=== PATIENT | female | born 1985 | race Caucasian/White ===

== ENCOUNTER → 2016-07-20 | Outpatient (CLI) | payer OTHER ==
[~2016-07-20] MED LIST: PRENTAB26 PO
[2016-07-20 15:46] LABS: BASO % 0.3 %; BASO ABS # 0.02 K/uL (0-0.2); COMPLETE YES; EOS % 0.6 %; HEMATOCRIT 36.5 % (37-47); IG% 0.1 %; LYMPH % 27.4 %; LYMPH ABS # 1.96 K/uL (1.2-3.4); MEAN CELL VOLUME 92.4 fL (80-100); MEAN CORPUSCULAR HEMOGLOBIN 32.9 pg (25-34); MEAN CORPUSCULAR HGB CONC 35.6 g/dl (32-36); MEAN PLATELET VOLUME 11.5 fL (7.4-10.4); MONO % 5.9 %; NEUT % 65.7 %; PLATELET COUNT 174 K/uL (130-400); RED BLOOD COUNT 3.95 M/uL (4.2-5.4); WHITE BLOOD COUNT 7.15 K/uL (4.8-10.8)
== END | disposition home or self-care (01) ==
LOC: C.LAB1850 14:30
PROVIDERS: ATTEND Obstetrics & Gynecology
DX: Z34.81 Encounter for supervision of other normal pregnancy, first trimester (principal)

== ENCOUNTER → 2016-07-20 | Outpatient (CLI) | payer OTHER ==
[2016-07-23 11:23] LABS: MANUAL MICROSCOPIC REQUIRED? NO; REVIEW REQ? NO; URINE APPEARANCE CLEAR (CLEAR); URINE COLOR YELLOW
[2016-07-23 11:24] LABS: URINE BILIRUBIN NEG (NEG); URINE NITRITE NEG (NEG); URINE PH 6.5 (4.5-7.5); URINE SPECIFIC GRAVITY < 1.005 (1.000-1.030); UROBILINOGEN NEG (NEG)
[2016-07-24 01:40] LABS: CHLAMYDIA TRACH RNA*** NOT DETECTED (NOT DETECTED); GC (NEIS GONORRHOEAE)RNA** NOT DETECTED (NOT DETECTED)
== END | disposition home or self-care (01) ==
LOC: C.LABSPEC 17:47
PROVIDERS: ATTEND Obstetrics & Gynecology
DX: Z34.81 Encounter for supervision of other normal pregnancy, first trimester (principal)

== ENCOUNTER → 2016-09-17 | Outpatient (CLI) | payer OTHER ==
[2016-09-17 12:39] LABS: GTGD 50 Grams
[2016-09-19 15:02] LABS: AFP CONCENTRATION 15.7 NG/ML; AFP MULTIPLE OF MEDIAN 0.45; AFPTS GESTATIONAL AGE 17.4 WEEKS; AFPTS INSULIN DEP DIABETIC? NO; AFPTS MATERNAL WT 179 LBS; ALPHA-FETOPROTEIN RACE CAUCASIAN=W; HISTORY OF NTD NO; REPEAT SAMPLE? NO
== END | disposition home or self-care (01) ==
LOC: C.LAB1850 09:40
PROVIDERS: ATTEND Obstetrics & Gynecology
DX: Z34.82 Encounter for supervision of other normal pregnancy, second trimester (principal)

== ENCOUNTER → 2016-12-06 | Outpatient (CLI) | payer OTHER ==
[2016-12-06 10:11] LABS: GTGD 50 Grams
[2016-12-06 11:46] LABS: URINE APPEARANCE CLEAR (CLEAR); URINE BILIRUBIN NEG (NEG); URINE COLOR YELLOW; URINE NITRITE NEG (NEG); URINE PH 7.5 (4.5-7.5); URINE SPECIFIC GRAVITY 1.004 (1.000-1.030); UROBILINOGEN NEG (NEG)
[2016-12-06 11:58] LABS: MANUAL MICROSCOPIC REQUIRED? NO; REVIEW REQ? NO
== END | disposition home or self-care (01) ==
LOC: C.LAB1850 08:46
PROVIDERS: ATTEND Obstetrics & Gynecology
DX: Z34.82 Encounter for supervision of other normal pregnancy, second trimester (principal)

== ENCOUNTER → 2017-02-01 | Outpatient (CLI) | payer OTHER | END | disposition home or self-care (01) | LOC: C.LABSPEC 10:43 | PROVIDERS: ATTEND Obstetrics & Gynecology | DX: Z34.83 Encounter for supervision of other normal pregnancy, third trimester (principal); Z3A.00 Weeks of gestation of pregnancy not specified ==

== ENCOUNTER 2017-02-22 03:05 | Inpatient (IN) | payer OTHER ==
[~2017-02-22] VITALS: Ht 162.6 cm; Wt 91.4 kg
[2017-03-01] MEDS ORDERED: LACTATED RINGER'S 1000ML 1,000 ML IV PRN (07:45)
[2017-03-01] MEDS ORDERED: LACTATED RINGER'S 1000ML 500 ML IV PRN ×2 (07:48→12:03)
[2017-03-01] MEDS ORDERED: OXYTOCIN 30 UNITS/500ML NSS IV PRN (08:00)
[2017-03-01 08:03] LABS: HEMATOCRIT 31.6 % (37-47); MEAN CELL VOLUME 97.5 fL (80-100); MEAN CORPUSCULAR HEMOGLOBIN 32.7 pg (25-34); MEAN CORPUSCULAR HGB CONC 33.5 g/dl (32-36); MEAN PLATELET VOLUME 11.3 fL (7.4-10.4); PLATELET COUNT 153 K/uL (130-400); RED BLOOD COUNT 3.24 M/uL (4.2-5.4); WHITE BLOOD COUNT 8.99 K/uL (4.8-10.8)
[2017-03-01 08:07] VITALS: Ht 162.6 cm; Wt 91.4 kg
[2017-03-01] MEDS: LACTATED RINGER'S 1000ML 1,000 ML IV SCH ×2 (08:34→12:13)
[2017-03-01] MEDS ORDERED: BUPIVACAINE 0.25% 30 ML VIAL ONE (11:14)
[2017-03-01] MEDS ORDERED: EpHEDrine SULFATE INJ 50 MG/ML AMP ONE (11:14)
[2017-03-01] MEDS ORDERED: FENTANYL 2MCG/ML ROPIV 1.25MG/ML 100ML BAG EPI ONE (11:15)
[2017-03-01] MEDS ORDERED: FENTANYL CITRATE INJ 50 MCG/1 ML 2 ML VIAL ONE (11:16)
[2017-03-01] MEDS ORDERED: NALOXONE HCL INJ 1 MG in SODIUM CHLORIDE 0.9% 1000ML 1,000 ML IV PRN (12:03)
[2017-03-01] MEDS ORDERED: NALBUPHINE HCL INJ 10 MG/ML AMP IV PRN (12:15)
[2017-03-01] MEDS ORDERED: NALOXONE HCL INJ 0.4 MG/1 ML VIAL/CARP IV PRN (12:15)
[2017-03-01] MEDS ORDERED: DiphenhydrAMINE HCL 50 MG/ML VIAL IV PRN (12:15)
[2017-03-01] MEDS ORDERED: ONDANSETRON INJ 2 MG/ML 2 ML VIAL IV PRN (12:15)
[2017-03-01] MEDS ORDERED: FENTANYL 2MCG/ML ROPIV 1.25MG/ML 100ML BAG EPI PRN (12:15)
[2017-03-01] MEDS ORDERED: EpHEDrine SULFATE INJ 50 MG/ML AMP IV PRN (12:15)
[2017-03-01] MEDS ORDERED: SUPERCREAM 0.870 % 15GM JAR EXT PRN (16:45)
[2017-03-01] MEDS ORDERED: HYDROCORTISONE ACETATE 25 MG SUPP PR PRN (16:45)
[2017-03-01] MEDS ORDERED: ACETAMINOPHEN 325 MG TAB PO PRN (16:45)
[2017-03-01] MEDS ORDERED: ACETAMINOPHEN/CODEINE 300/30MG TAB PO PRN (16:45)
[2017-03-01] MEDS ORDERED: BENZOCAINE 20% AER SPR 82.5 GM CAN EXT PRN (16:45)
[2017-03-01] MEDS ORDERED: LANOLIN OINT EXT PRN ×2 (16:45)
[2017-03-01] MEDS: OXYTOCIN 30 UNITS/500ML NSS IV PRN ×2 (17:25→19:14)
--- NOTE | 2017-03-01 18:10 | Anesthesia Procedure Note ---
Anesthesia Epidural Removal Nt Date & Time Mar 01, 2017 at 18:10 Vital Signs Pain Intensity: 1 Notes Mental Status: alert / awake / arousable, participated in evaluation Nausea / Vomiting: adequately controlled Pain: adequately controlled Airway Patency, RR, SpO2: stable & adequate BP & HR: stable & adequate Hydration State: stable & adequate Neuraxial Anesthesia: was administered Anesthetic Complications: no major complications apparent, pt satisfied with anesthetic care Epidural: removed without complications, with tip intact
[2017-03-01] MEDS: IBUPROFEN 600 MG TAB PO PRN ×2 (18:28→22:57)
[2017-03-01] MEDS: ACETAMINOPHEN/CODEINE 300/30MG TAB PO PRN (19:36)
[2017-03-01] MEDS: DOCUSATE SODIUM 100 MG CAP PO SCH (20:00)
[2017-03-01 20:21] VITALS: BP 110/73; PULSE 79; TEMP 36.9
[2017-03-01] MEDS ORDERED: PRENATAL VITAMIN TAB PO SCH (21:00)
--- NOTE | 2017-03-01 21:02 | DELIVERY SUMMARY ---
DATE OF OPERATION: 03/01/2017 PREDELIVERY DIAGNOSES: 1. Term intrauterine . 2. Low maternal serum alpha-fetoprotein on screening with normal panorama. 3. Postdates . POSTDELIVERY DIAGNOSES: 1. Term intrauterine . 2. Low maternal serum alpha-fetoprotein on screening with normal panorama. 3. Postdates . PROCEDURE: Spontaneous vaginal delivery with repair of vaginal sulcal tear. ANESTHESIA: Epidural. ESTIMATED BLOOD LOSS: 300 mL. FINDINGS: Viable male , Apgars 8 and 9. Weight 8 pounds 4.5 ounces. DELIVERING SURGEON: Dr. Mackenzie Mcdonald. DESCRIPTION OF DELIVERY: The patient is a 31-year-old G2, P1-0-0-1, 41 weeks 0 days who was scheduled for an elective induction secondary to postdates . She received a Martines balloon for cervical ripening. This was followed by administration of Pitocin. She had spontaneous rupture of membranes and received an epidural. She progressed to complete, she then began to push. After 3 pushes, she spontaneously vaginally delivered a viable male from the cephalic presentation. The head delivered in occiput anterior position. The head delivered with compound hand. Bilateral shoulders delivered at approximately the same time, followed by the body. The baby was placed on mother's abdomen and a spontaneous cry was heard. Delayed cord clamping was employed and at the cessation of pulsatile activity in the umbilical cord, the umbilical cord was then doubly clamped and cut. Cord blood was obtained. The placenta was then delivered spontaneously intact with a 3-vessel cord. Pitocin was given. The uterus began to firm. The uterus and vagina were swept of all clots and debris. The cervix, vagina and perineum were inspected and bilateral vaginal sulcal tears were noted. The left tear was repaired to obtain hemostasis. This was repaired with 3-0 Vicryl in a running-locked stitch. Excellent hemostasis was observed. All sponge, instrument and needle counts were correct at the conclusion of the delivery x2. Mother and baby recovered well in stable and good condition in the room. I attest to the content of the Intraoperative Record and any orders documented therein. Any exception s are noted below.
[2017-03-02] VITALS: BP 99/65; PULSE 76; TEMP 37
[2017-03-02] MEDS: ACETAMINOPHEN/CODEINE 300/30MG TAB PO PRN (00:03)
[2017-03-02 04:00] VITALS: BP 93/59; PULSE 70; TEMP 36.8
--- NOTE | 2017-03-02 06:17 | OB/GYN Progress Note ---
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 Subjective conversation w/ patient, physical exam, chart review, lab review Ambulation: ambulating normally Voiding: no voiding problems Passing Gas: Yes Diet Tolerance: Regular Diet Lochia: Small Feeding Type: Breast Feeding Pain: mild pain Review of Systems Constitutional: No fever, No chills Respiratory: No shortness of breath Cardiac: No chest pain Abdomen: No nausea, No vomiting Female : No dysuria reports R leg numbness still from epidural and petechial non pruritic rash on neck Objective Vital Signs Date Time Temp Pulse Resp B/P (MAP) Pulse Ox O2 Delivery O2 Flow Rate FiO2 03/02/17 04:00 36.8 70 18 93/59 (70) 03/02/17 00:00 Room Air 03/02/17 00:00 37.0 76 18 99/65 (76) 03/01/17 20:21 36.9 79 16 110/73 (85) Room Air 03/01/17 20:21 Room Air Physical Exam General Appearance: WELL-APPEARING Respiratory/Chest: lungs clear, normal breath sounds Cardiovascular: regular rate, rhythm Abdomen: normal bowel sounds, non tender, soft Fundus: Firm, Relation to Umbilicus (2 FB below) Extremities: non-tender, no pedal edema Laboratory Results Last 24 Hours Test 03/01/17 07:53 03/02/17 04:44 White Blood Count 8.99 K/uL Red Blood Count 3.24 M/uL Hemoglobin 10.6 g/dL Hematocrit 31.6 % Mean Corpuscular Volume 97.5 fL Mean Corpuscular Hemoglobin 32.7 pg Mean Corpuscular Hemoglobin Concent 33.5 g/dl RDW Standard Deviation 51.8 fL RDW Coefficient of Variation 14.5 % Platelet Count 153 K/uL Mean Platelet Volume 11.3 fL Assessment and Plan Day Number: 1 Continue Routine Care: A/P: This is a 31 y/o female, , s/p [normal vaginal delivery] day 1. She is ambulating and clinically stable. Plan: - Vitals signs are reviewed and WNL (Tmax 37) - Last Hgb is 10.6 this AM is pending - Blood type A+, GBS neg, Rubella Immune - No signs of depression. - Routine care - Discussed resting, feeding, pain control, mastitis, control, follow up in 6 weeks and reasons to call sooner, if necessary. - Continue with pain medication as needed, and continue vitamins. - Encourage breast feeding and educate about breast feeding - Patient understands and keen for home. - Plan to discharge home Resident Physician Supervision Note: I was present with Dr. Cesar during the history and exam. I discussed the case with the resident and agree with the findings and plan as documented in the note. Any exceptions or clarifications are listed here: PPD#1, doing well, requests discharge. Instructions reviewed. RTO 6w. Documented By: Mackenzie Mcdonald Resident Involvement: Resident Care Provided Care Provided: OB Delivery
--- NOTE | 2017-03-02 06:34 | Discharge Instructions ---
Discharge Instructions Date of Service Mar 02, 2017. Admission Reason for Admission: Induction Discharge Discharge Diagnosis / Problem: after vaginal delivery Discharge Goals Goal(s): Routine recovery after delivery Medications Continue Dispensed Medications: supercream, dermaplast, tucks, lansinoh Activity Recommendations Activity Limitations: per Instructions/Follow-up section . Instructions / Follow-Up Instructions / Follow-Up ACTIVITY RECOMMENDATIONS: * Gradual return to full activity over the next 2-3 weeks. * No lifting - nothing heavier than baby over the next 2-3 weeks. * Do not engage in vigorous exercise, sexual activity or sports until cleared by your physician. * Do not drive or operate any motorized equipment until cleared by your physician. * You may shower/bathe daily. MEDICATIONS: For discomfort or pain, you may use Acetaminophen (Tylenol), Ibuprofen (Advil), or Naproxen (Aleve) following the package directions. For constipation you may use Colace following the package directions. BREAST CARE: If you are not breast feeding: * Wear a supportive bra 24 hours a day for one to two weeks. * Avoid stimulating your breasts and nipples as much as possible during the first few weeks after delivery. * When taking a shower, have the warm water hit your back, not breasts. * When your breasts feel full, apply ice packs. Usually three to four times a day helps ease the discomfort. * Take a mild pain medication (Tylenol / Motrin) when you are uncomfortable. If breast feeding: * Use breast milk to lubricate nipples. Lansinoh cream may be used for sore nipples. You do not need to remove cream prior to breast feeding. If using a different brand of cream, check the label for directions regarding removal of cream prior to nursing. * Wear a supportive bra. * If having problems with breasts or breast feeding, call a [employer] consultant or your health care provider. EPISIOTOMY CARE: After delivery, if you have an episiotomy (stitches), the following steps will ease discomfort and aid healing. * For the first 24 hours after delivery, place ice packs next to your episiotomy to help reduce swelling. * After the first 24 hour-period, sitz baths, either portable or in the tub, are suggested. A shower with a shower arm sprayed over the episiotomy may be comforting. * Soniya care should be done after each voiding and bowel movement. Squirt warm water from a plastic bottle over the perineum (region of the body between the anus and urinary opening) and pat dry. * Use Dermoplast to ease discomfort. Shake container. [place] directly over the episiotomy. Place a Tucks on a clean sanitary pad next to your episiotomy. SPECIAL CARE INSTRUCTIONS: When you are discharged from the hospital, it is important for you to follow the instructions listed below: * During the first week at home, you should be able to care for yourself and your baby. In addition, the usual light household activities are encouraged. * Limit your activities to the way you feel. Do not try to clean the house or move furniture. Be sensible. * If you actively engage in sports and have done so up until the time of your delivery, you may resume these activities as soon as you feel able. This may take up to one month or even longer. Use good judgment. * Continue to take your vitamins for at least six weeks after the of your baby. * Your diet need not be limited unless you were on a special diet before your delivery. Breast-feeding mothers need around 2500 calories per day and at least 64-80 ounces of fluid per day (8 to 10 glasses). * You should eat foods from the four major food groups. Crash diets or fad diets are to be avoided. Eating lean meats, fresh fruits and vegetables, low-fat dairy products, high fiber foods and a regular exercise program, will help you get back to your pre- weight without putting your health at risk. * Constipation is sometimes a problem after delivery. Take a mild laxative as needed. If breast feeding, Milk of Magnesia is acceptable to use. You may use a suppository or Fleets enema if no episiotomy. * A daily shower or tub bath is suggested. Be sure to thoroughly and gently dry the perineum. * A bloody vaginal discharge will usually continue until around four weeks post . A small amount of bleeding may continue for as long as six weeks. Vaginal discharge changes from the bright red bleeding after delivery to pink then brownish and finally yellowish-pink before becoming white and disappearing. * Bleeding may increase with activity. Your first period may come in 4-8 weeks. If you are breast feeding, your period may be delayed even longer. * [place] (sex) can begin whenever both you and your partner feel comfortable and do not have any form of genital infection. It is recommended that you wait at least six weeks for internal and external healing to occur. If you have questions, please talk to your health care practitioner. A condom should be used to prevent infection and . * Foreplay, gentle intercourse and lubrication is very important the first several times to prevent pain. A water-based lubricant such as K-Y jelly or Astroglide may be used. * If you have RH negative blood and your baby is RH positive, you will receive RHOGAM by injection prior to discharge. The nurse will give you a card to keep with you that has the date and place that you received RHOGAM after delivery. * During your care, you had a Rubella screen done to check for the presence of rubella antibodies in your blood. If your test was negative, you will receive a Rubella vaccine prior to discharge. This vaccine may cause a fever, soreness at the injection site and flu-like symptoms. If these symptoms persist, notify your health care practitioner. is not advised for one month after a Rubella vaccine. * Verbalizes understanding of car seat law as reviewed with patient nursing. * Car Seat hand-out given and reviewed with patient by nursing. * Shaken baby information reviewed with patient by nursing. Call you doctor if: * Heavy bleeding (saturating several pads an hour) or passing clots the size of your fist. * A fever >101 degrees F (38.3 degrees C) on two occasions four hours apart and /or chills. * Unusual pain in the pelvic or vaginal areas. * "Baby Blues" lasting longer than two weeks. If you have any questions or concerns, call your health care practitioner at . FOLLOW UP VISIT: * Please call the office at to schedule a 6 week examination. It is important you keep this appointment. It is important for you to make arrangements for either yearly or twice yearly check-ups thereafter. Current Hospital Diet Patient's current hospital diet: Regular OB Diet Discharge Diet Recommended Diet: Regular Diet Pending Studies Studies pending at discharge: no Medical Emergencies . Who to Call and When: Medical Emergencies: If at any time you feel your situation is an emergency, please call 911 immediately. . Non-Emergent Contact Non-Emergency issues call your: Special Certificate Dictator . . "Provider Documentation" section prepared by Olga Cesar. . VTE Core Measure Inpt VTE Proph given/why not?: SCD's
[2017-03-02 07:10] LABS: HEMATOCRIT 25.9 % (37-47)
[2017-03-02] MEDS ORDERED: PRENATAL VITAMIN TAB PO SCH (08:00)
[2017-03-02] MEDS ORDERED: FERROUS SULFATE 325 MG TAB PO SCH (08:00)
[2017-03-02] MEDS: DOCUSATE SODIUM 100 MG CAP PO SCH (08:04)
[2017-03-02 08:30] VITALS: BP 102/68; PULSE 76; TEMP 36.3
[2017-03-02] MEDS: IBUPROFEN 600 MG TAB PO PRN ×2 (12:22→17:39)
[2017-03-02 12:25] VITALS: BP 106/76; PULSE 74; TEMP 36.6
[2017-03-02 15:30] VITALS: BP 96/61; PULSE 82; TEMP 36.4
[2017-03-02 17:14] VITALS: BP_DIAS 61; PULSE 82; TEMP 36.4
[2017-03-02] MEDS ORDERED: BISACODYL 5 MG TABEC PO SCH (20:00)
[2017-03-03] MEDS ORDERED: BISACODYL 10 MG SUPP PR PRN (07:00)
== END 2017-03-02 19:45 | disposition home or self-care (01) | DRG 774 ==
LOC: C.LD 03-01 07:27 → C.OBG 03-01 20:00
PROVIDERS: ADMIT Obstetrics & Gynecology; ATTEND Obstetrics & Gynecology
PROC: 3E0P7GC Introduction of Other Therapeutic Substance into Female Reproductive, Via Natural or Artificial Opening (ICD-10-PCS; 2017-02-28)
PROC: 10E0XZZ Delivery of Products of Conception, External Approach (ICD-10-PCS; principal; 2017-03-01)
PROC: 0HQ9XZZ Repair Perineum Skin, External Approach (ICD-10-PCS; principal; 2017-03-01)
DX: O48.0 Post-term pregnancy (principal); O98.32 Other infections with a predominantly sexual mode of transmission complicating childbirth; Z37.0 Single live birth; O28.8 Other abnormal findings on antenatal screening of mother; O70.0 First degree perineal laceration during delivery; Z3A.41 41 weeks gestation of pregnancy